=== PATIENT | female | born 1940 | race Caucasian/White ===

== ENCOUNTER 2022-11-30 13:01 | Outpatient (CLI) | payer MEDICARE ==
[~2022-11-30 13:01] MED LIST: BARIUM SULFATE 340 ML SUSP.RECON***PROCEDURE AREA ONLY**DONT ENTER PO ONE; CHOL2000 PO; FLUO-213 PO; GABA600T13 PO; LEVO75TA7 PO; LOVA40TA2 PO; MULT-934; PENT100C9 PO; TRAM50TA2 PO; TRAZ-256 PO; VIT1CAPS42 PO
== END 2022-11-30 23:59 | disposition home or self-care (01) ==
LOC: RAD 13:01
PROVIDERS: ATTEND Pediatrics
DX: R13.12 Dysphagia, oropharyngeal phase (principal); R13.14 Dysphagia, pharyngoesophageal phase; K21.9 Gastro-esophageal reflux disease without esophagitis; F03.90 Unspecified dementia, unspecified severity, without behavioral disturbance, psychotic disturbance, mood disturbance, and anxiety
CPT/HCPCS: 74230

== ENCOUNTER 2023-03-22 09:42 | Emergency (ER) | payer MEDICARE ==
[~2023-03-22] VITALS: Ht 152.4 cm; Wt 45.5 kg
[~2023-03-22 09:42] MED LIST changes: -BARIUM SULFATE 340 ML SUSP.RECON***PROCEDURE AREA ONLY**DONT ENTER PO ONE
--- NOTE | 2023-03-22 11:00 | NUR ---
PT BIB DAUGHTER FROM [facility]. PT IS NOT HER OWN RP, DNR COMFORT. POA IS DAUGHTER WHO LIVES IN [place]. CALL TO POA/ DAUGHTER LORIE WHO STATED SHE IS REQUESTING HER MOM TO BE SEEN AND HER SISTER WHO BROUGHT PT IN ([place]) IS OKAY TO SIGN FOR HER MOMS CARE AND MAKE MEDICAL DESCISIONS. CRN NOTIFIED.
[2023-03-22] MEDS ORDERED: acetaminophen 325mg tablet PO ONE (12:10)
[2023-03-22 12:31] VITALS: BP 151/83
== END 2023-03-22 12:41 | disposition home or self-care (01) ==
LOC: ER 09:44
DX: S00.83XA Contusion of other part of head, initial encounter (principal); S00.11XA Contusion of right eyelid and periocular area, initial encounter; W18.39XA Other fall on same level, initial encounter; Y93.89 Activity, other specified; Y92.89 Other specified places as the place of occurrence of the external cause; Y99.8 Other external cause status
CPT/HCPCS: 70450; 99284